=== PATIENT | male | born 1970 | race Caucasian/White ===

== ENCOUNTER 2022-11-04 19:53 | Emergency (ER) | payer BC, SELFPAY ==
[2022-11-04 19:55] VITALS: BP 119/85; PULSE 81; RESP 18; TEMP 36.6; O2SAT 96; BMI 21.3
--- NOTE | 2022-11-04 20:07 | ED.EXTPRO1 ---
Documented by User: JOE Plascencia 11/04/22 20:23 HPI - Extremity Problem General Chief complaint: Extremity Problem, Nontraumatic Stated complaint: BLOOD CLOT IN LEG Time Seen by Provider: 11/04/22 19:54 Source: patient Mode of arrival: walk-in Limitations: no limitations History of Present Illness HPI Narrative: Patient is a 52-year-old male presents to the Emergency Room with concerns of tenderness and swelling in his left lower leg. Patient reports treatment with Dr. Rincon vascular surgeon, supposed to be taking Xarelto 20 mg daily but lost his prescription earlier in the week. Patient states he is due for refill and was waiting until his refill was ready, but over the past 3-4 days has noticed some tenderness and swelling just below his left calf. Patient states he has had a history of both of deep vein thrombosis, arterial stenosis and superficial thrombophlebitis. Patient notes the pain that is inflamed is more consistent with thrombophlebitis which she has had in the past. He denies tenderness into his calf or thigh. He denies any cramping. The area is locally tender to touch with minimal warmth. Patient denies any chest pain or shortness of breath. He does not have any difficulty walking denies pain into the foot or ankle. Patient appears in no distress but admits to anxiety about being off his medication. Significant other bedside expresses concern about his compliance with medication in general. 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 I know I need to be on it. Patient believes his cat knocked his bottle off the shelf and he has been unable to find it for the past week. Complaint: Reports extremity pain and extremity swelling Location: Reports right and lower extremity Radiation: Reports none Context: Reports history of DVT and history of peripheral vascular disease Related Data Home Medications Medication Instructions Recorded Confirmed rivaroxaban 20 mg tablet (Xarelto) 20 mg PO Q24H 11/04/22 11/04/22 Allergies Allergy/AdvReac Type Severity Reaction Status Date / Time No Known Drug Allergies Allergy Verified 11/04/22 20:05 Review of Systems ROS Constitutional Denies: fever or chills Ears, nose, mouth, and throat Denies: throat pain or neck pain Cardiovascular Denies: chest pain, palpitations, edema or swelling of feet/ankles Respiratory Denies: shortness of breath, cough or coughing up blood Gastrointestinal Denies: abdominal pain or blood in stool Genitourinary Denies: painful urination Musculoskeletal Denies: back pain, extremity swelling, joint pain or muscle cramps Integumentary/Breast Denies: rash Neurological Denies: headache or numbness in extremities Psychiatric Denies: anxiety Endocrine Denies: excessive urination Hematologic/Lymphatic Reports: easy bruising (on xarelto); Denies: easy bleeding Exam Narrative Exam Narrative: Nurses notes and vital signs reviewed and patient is not hypoxic. General: The patient appears well and in no apparent distress. Patient is resting comfortably on cart. Skin: Warm, dry, no pallor noted. No evidence of skin breakdown or ulceration Head: Normocephalic, atraumatic Neck: Supple, trachea mid-line, no tenderness, no lymphadenopathy Eye: Pupils are equal, round and reactive to light, EOMI Ears, Nose, Mouth, and Throat: External exam unremarkable. Cardiovascular: Regular Rate and Rhythm Respiratory: Patient is in no distress, no accessory muscle use, lungs are clear to auscultation, no wheezing, rales or rhonchi. Chest Wall: no tenderness, no pleuritic pain Musculoskeletal: normal ROM, no tenderness, no swelling, negative [place], prominent varicosities, left posterior lower leg noted for area of firmness and a superficial varicosity with associated tenderness, this is distinctly distal from his Muscle and he has no tenderness along his Achilles. No pain with ankle dorsiflexion and plantarflexion with five out of five strength. No evidence of abscess. No evidence of cellulitis. Right lower extremity unremarkable. Patient has bronzing and discoloration to the medial ankle distal pulses present Refill less than two seconds GI: Denies abdominal pain Neurological: A&O x4 Psychiatric: Cooperative Constitutional Vital Signs, click to edit/add: Last Vital Signs Temp 98 F 11/04/22 19:55 Pulse 81 11/04/22 19:55 Resp 18 11/04/22 19:55 BP 119/85 11/04/22 19:55 Pulse Ox 96 11/04/22 19:55 O2 Del Method Room Air 11/04/22 19:55 Course Vital Signs Vital signs: Vital Signs Temperature 98 F 11/04/22 19:55 Pulse Rate 81 11/04/22 19:55 Respiratory Rate 18 11/04/22 19:55 Blood Pressure 119/85 11/04/22 19:55 Pulse Oximetry 96 11/04/22 19:55 Oxygen Delivery Method Room Air 11/04/22 19:55 Temperature 98 F 11/04/22 19:55 Pulse Rate 81 11/04/22 19:55 Respiratory Rate 18 11/04/22 19:55 Blood Pressure 119/85 11/04/22 19:55 Pulse Oximetry 96 11/04/22 19:55 Oxygen Delivery Method Room Air 11/04/22 19:55 MDM - Extremity (Nontraumatic) MDM Narrative Medical decision making narrative: Achilles tendon appears intact, patient denies injury or trauma, symptoms for 3-4 days and he has been off his medication for approximately one week. He has no tenderness in his calf or thigh, localized tenderness to superficial varicosity posterior leg. Recommend warm compress likely superficial thrombophlebitis. Patient sees vascular surgery, we discussed potential outpatient ultrasound to assess, patient notes they have been done at [facility]. We discussed restarting his medication and patient given xarelto 20 mg here, he has a refill at the pharmacy. Confirm that he had completed the starter dose pack. Patient verbalized resources to get his prescription filled. He will contact his vascular surgeon to discuss the need for further imaging, as we do not have ultrasound programmer operator numerical control this evening. Patient feels comfortable with treatment plan to resume his medication as prescribed and may return to the Emergency Room if symptoms worsen or new symptoms develop. Patient verbalized understanding that if he misses doses of his medication that it may not treat his symptoms and or disability could be an end result. He also noted the inherent risks of taking a blood thinning medication with associated precautions regarding incidental trauma head injury or gastrointestinal bleeding. The patient is to followup with primary care physician in next 2-3 days or to return to the emergency department should any of the signs or symptoms worsen or new symptoms develop. Patient had questions answered. The patient agrees with the following Diagnosis and Treatment plan and the patient will be discharged home. Discharge Plan Discharge Chief Complaint: Extremity Problem, Nontraumatic Clinical Impression: Medication refill Superficial thrombophlebitis Qualifiers: Superficial thrombophlebitis-Involved body area: lower extremity Laterality: left Qualified Code(s): I80.02 - Phlebitis and thrombophlebitis of superficial vessels of left lower extremity Patient Disposition: Home, Self-Care Time of Disposition Decision: 20:08 Condition: Good Prescriptions / Home Meds: No Action Xarelto 20 mg tablet 20 mg PO Q24H Instructions: Rivaroxaban (By mouth), Deep Vein Thrombosis (ED) Additional Instructions: Please call Dr. Rincon- vascular surgery for follow up: :[phone]:[phone]; Stand Alone Forms: Portal Instructions Discharge Date/Time: 11/04/22 20:20 Documented by User: Reba Francis MD 11/04/22 21:30 HPI - Extremity Problem General Chief complaint: Extremity Problem, Nontraumatic Stated complaint: BLOOD CLOT IN LEG Time Seen by Provider: 11/04/22 19:54 Related Data Home Medications Medication Instructions Recorded Confirmed rivaroxaban 20 mg tablet (Xarelto) 20 mg PO Q24H 11/04/22 11/04/22 Allergies Allergy/AdvReac Type Severity Reaction Status Date / Time No Known Drug Allergies Allergy Verified 11/04/22 20:05 Exam Constitutional Vital Signs, click to edit/add: Last Vital Signs Temp 98 F 11/04/22 19:55 Pulse 81 11/04/22 19:55 Resp 18 11/04/22 19:55 BP 119/85 11/04/22 19:55 Pulse Ox 96 11/04/22 19:55 O2 Del Method Room Air 11/04/22 19:55 Course Vital Signs Vital signs: Vital Signs Temperature 98 F 11/04/22 19:55 Pulse Rate 81 11/04/22 19:55 Respiratory Rate 18 11/04/22 19:55 Blood Pressure 119/85 11/04/22 19:55 Pulse Oximetry 96 11/04/22 19:55 Oxygen Delivery Method Room Air 11/04/22 19:55 Temperature 98 F 11/04/22 19:55 Pulse Rate 81 11/04/22 19:55 Respiratory Rate 18 11/04/22 19:55 Blood Pressure 119/85 11/04/22 19:55 Pulse Oximetry 96 11/04/22 19:55 Oxygen Delivery Method Room Air 11/04/22 19:55 MDM - Extremity (Nontraumatic) MDM Narrative Medical decision making narrative: Achilles tendon appears intact, patient denies injury or trauma, symptoms for 3-4 days and he has been off his medication for approximately one week. He has no tenderness in his calf or thigh, localized tenderness to superficial varicosity posterior leg. Recommend warm compress likely superficial thrombophlebitis. Patient sees vascular surgery, we discussed potential outpatient ultrasound to assess, patient notes they have been done at [facility]. We discussed restarting his medication and patient given xarelto 20 mg here, he has a refill at the pharmacy. Confirm that he had completed the starter dose pack. Patient verbalized resources to get his prescription filled. He will contact his vascular surgeon to discuss the need for further imaging, as we do not have ultrasound programmer operator numerical control this evening. Patient feels comfortable with treatment plan to resume his medication as prescribed and may return to the Emergency Room if symptoms worsen or new symptoms develop. Patient verbalized understanding that if he misses doses of his medication that it may not treat his symptoms and or disability could be an end result. He also noted the inherent risks of taking a blood thinning medication with associated precautions regarding incidental trauma head injury or gastrointestinal bleeding. The patient is to followup with primary care physician in next 2-3 days or to return to the emergency department should any of the signs or symptoms worsen or new symptoms develop. Patient had questions answered. The patient agrees with the following Diagnosis and Treatment plan and the patient will be discharged home. Attending physician attestation I have reviewed the mid-level documentation, agree with the documentation, medical decision making and treatment plan as outlined by the mid-level provider. Discharge Plan Discharge Chief Complaint: Extremity Problem, Nontraumatic Clinical Impression: Medication refill Superficial thrombophlebitis Qualifiers: Superficial thrombophlebitis-Involved body area: lower extremity Laterality: left Qualified Code(s): I80.02 - Phlebitis and thrombophlebitis of superficial vessels of left lower extremity Patient Disposition: Home, Self-Care Time of Disposition Decision: 20:08 Condition: Good Prescriptions / Home Meds: No Action Xarelto 20 mg tablet 20 mg PO Q24H Instructions: Rivaroxaban (By mouth), Deep Vein Thrombosis (ED) Additional Instructions: Please call Dr. Rincon- vascular surgery for follow up: :?[phone]:[phone]; Stand Alone Forms: Portal Instructions Discharge Date/Time: 11/04/22 20:20
[2022-11-04] MEDS: RIVAROXABAN 10 MG TABLET 20 MG PO (20:32)
== END 2022-11-04 20:20 | disposition home or self-care (01) ==
PROVIDERS: Emergency Provider Emergency Medicine
DX: Z76.0 Encounter for issue of repeat prescription (principal); I80.02 Phlebitis and thrombophlebitis of superficial vessels of left lower extremity; Z86.718 Personal history of other venous thrombosis and embolism; Z79.01 Long term (current) use of anticoagulants; I73.9 Peripheral vascular disease, unspecified
CPT/HCPCS: 99283